=== PATIENT | male | born 1955 | race Caucasian/White ===

== ENCOUNTER → 2024-01-29 07:36 | Outpatient (REF) | payer MEDICARE, SELFPAY | LOC: EMG 07:36 | PROVIDERS: ATTENDING PHYSICIAN Physical Medicine & Rehabilitation; FAMILY PHYSICIAN Family Medicine | DX: G56.21 Lesion of ulnar nerve, right upper limb (principal); R20.0 Anesthesia of skin | CPT/HCPCS: 95886; 95910 ==

== ENCOUNTER 2024-02-28 14:17 | Outpatient (RCR) | payer MEDICARE, SELFPAY | END 2024-02-28 23:59 | disposition home or self-care (01) | LOC: ROT 14:17 | PROVIDERS: ATTENDING PHYSICIAN Physical Medicine & Rehabilitation; FAMILY PHYSICIAN Family Medicine | DX: G56.21 Lesion of ulnar nerve, right upper limb (principal); Z73.6 Limitation of activities due to disability | CPT/HCPCS: 97010; 97110; 97166; 97535 ==

== ENCOUNTER 2024-03-11 16:16 | Outpatient (RCR) | payer MEDICARE, SELFPAY | END 2024-03-24 12:57 | disposition home or self-care (01) | LOC: ROT 16:16 | PROVIDERS: ATTENDING PHYSICIAN Physical Medicine & Rehabilitation; FAMILY PHYSICIAN Family Medicine | DX: G56.21 Lesion of ulnar nerve, right upper limb (principal); Z73.6 Limitation of activities due to disability | CPT/HCPCS: 97010; 97110 ==

== ENCOUNTER → 2024-03-25 12:50 | Outpatient (REF) | payer MEDICARE, SELFPAY | LOC: RAD 12:50 | PROVIDERS: ATTENDING PHYSICIAN Family Medicine | DX: R19.7 Diarrhea, unspecified (principal) | CPT/HCPCS: 74177; Q9967 ==

== ENCOUNTER → 2024-04-30 06:39 | Day surgery (SDC) | payer MEDICARE, SELFPAY | LOC: GI 06:39 | PROVIDERS: ATTENDING PHYSICIAN Internal Medicine Gastroenterology | DX: K52.9 Noninfective gastroenteritis and colitis, unspecified (principal); K64.8 Other hemorrhoids; K57.30 Diverticulosis of large intestine without perforation or abscess without bleeding; K52.832 Lymphocytic colitis | CPT/HCPCS: 45380; 88305; 88342 ==